=== PATIENT | female | born 2000 | race American Indian/Alaskan Native ===

== ENCOUNTER 2019-06-14 23:46 | Emergency (ER) | payer OTHER ==
[2019-06-15] MEDS ORDERED: NS 0.9% 1000 ML** 1,000 ML IV ONE (01:04)
[2019-06-15] MEDS ORDERED: Ibuprofen TAB* 400 MG PO ONE (01:04)
[2019-06-15] MEDS ORDERED: Acetaminophen TAB* 325 MG PO ONE (01:05)
[2019-06-15 01:51] LABS: ABS Lymphocytes 1.6 10^3/ul (1.0-4.8); ABS Neutrophils 6.8 10^3/ul (1.5-7.7); Eosinophil % 0.1 %; Hematocrit 42 % (35-47); Lymphocyte % 17.4 %; Mean Corpuscular HGB Conc 33 g/dL (31-36); Mean Corpuscular Hemoglobin 29 pg (27-31); Mean Corpuscular Volume 88 fL (80-97); Nucleated Red Blood Cells % 0.1; Platelet Count 225 10^3/uL (150-450); Red Blood Count 4.76 10^6 /uL (3.70-4.87); Red Cell Distribution Width 14 % (10-15); White Blood Count 9.4 10^3/uL (3.5-10.8)
[2019-06-15 02:08] LABS: Albumin 3.9 g/dL (3.2-5.2); Albumin/Globulin Ratio 1.2 (1-3); Calcium 8.4 mg/dL (8.6-10.3); EGFR African American 68.1 (>60); EGFR Non-African American 56.2 (>60); Globulin 3.3 g/dL (2-4); Total Bilirubin 0.5 mg/dL (0.2-1.0); Total Protein 7.2 g/dL (6.4-8.9)
[2019-06-15 02:30] LABS: Urine Appearance Clear; Urine Bacteria Absent (Absent); Urine Bilirubin Negative (Negative); Urine Blood 2+ (Negative); Urine Color Yellow; Urine Glucose Negative (Negative); Urine Ketones 1+ (Negative); Urine Nitrite Negative (Negative); Urine Protein Negative (Negative); Urine Red Blood Cell 1+(3-5/hpf) (Absent); Urine Squamous Epithelial Cell Present (Absent); Urine Urobilinogen Negative (Negative); Urine White Blood Cell 2+(11-20/hpf) (Absent)
[2019-06-15] MEDS ORDERED: Amoxicillin/Clavulanate TAB* 500 MG PO ONE (02:47)
--- NOTE | 2019-06-15 02:48 | ED ---
HPI Febrile Illness - HPI Summary HPI Summary: 18-year-old female presents with fever for the past couple days. She's been having body aches and headaches. She denies any neck stiffness. No cough. She admits to sore throat. Admits to sinus congestion. Also been having dysuria. Was diagnosed with UTI a week ago and started on which believes was Levaquin. She states that it seemed to get better but now has gotten worse. Denies any flank pain. No hematuria. Has no medical conditions. - History of Current Complaint Chief Complaint: EDFever Time Seen by Provider: 06/15/19 01:00 Pain Intensity: 3 - Allergy/Home Medications Allergies/Adverse Reactions: Allergies Allergy/AdvReac Type Severity Reaction Status Date / Time No Known Allergies Allergy Verified 06/14/19 23:57 PMH/Surg Hx/FS Hx/Imm Hx Endocrine/Hematology History: Denies: Hx Anticoagulant Therapy Respiratory History: Denies: Hx Asthma Infectious Disease History: No Infectious Disease History: Denies: Traveled Outside the [place] in Last 30 Days - Family History Known Family History: Positive: Non-Contributory - Social History Alcohol Use: None Substance Use Type: Reports: None Smoking Status (MU): Never Smoked Tobacco Review of Systems Positive: Fever, Chills Positive: Sore Throat Negative: Chest Pain Negative: Shortness Of Breath, Cough Negative: Abdominal Pain Positive: dysuria. Negative: flank pain Positive: Headache All Other Systems Reviewed And Are Negative: Yes Physical Exam Triage Information Reviewed: Yes Vital Signs On Initial Exam: Initial Vitals Temp Pulse Resp BP Pulse Ox 101.1 F 112 15 132/82 99 06/14/19 23:56 06/14/19 23:56 06/14/19 23:56 06/14/19 23:56 06/14/19 23:56 Vital Signs Reviewed: Yes Appearance: Positive: Well-Appearing Skin: Positive: Warm, Dry Head/Face: Positive: Normal Head/Face Inspection Eyes: Positive: Normal, EOMI, RHINA, Conjunctiva Clear ENT: Positive: Pharyngeal erythema, TMs normal Neck: Positive: Supple, Nontender, No Lymphadenopathy. Negative: Nuchal Rigidity Respiratory/Lung Sounds: Positive: Clear to Auscultation, Breath Sounds Present Cardiovascular: Positive: Normal, RRR Abdomen Description: Positive: Nontender, Soft. Negative: CVA Tenderness (R), CVA Tenderness (L) Bowel Sounds: Positive: Present Musculoskeletal: Positive: Normal Neurological: Positive: Normal Psychiatric: Positive: Normal Diagnostics - Vital Signs Vital Signs Temp Pulse Resp BP Pulse Ox 06/14/19 23:56 101.1 F 112 15 132/82 99 - Laboratory Lab Results: Lab Results 06/15/19 06/15/19 06/15/19 Range/Units 01:43 01:44 02:09 WBC 9.4 (3.5-10.8) 10^3/uL RBC 4.76 (3.70-4.87) 10^6 /uL Hgb 14.0 (12.0-16.0) g/dL Hct 42 (35-47) % MCV 88 (80-97) fL MCH 29 (27-31) pg MCHC 33 (31-36) g/dL RDW 14 (10-15) % Plt Count 225 (150-450) 10^3/uL MPV 8.0 (7.4-10.4) fL Neut % (Auto) 71.8 % Lymph % (Auto) 17.4 % Mitchell % (Auto) 10.3 % Eos % (Auto) 0.1 % Baso % (Auto) 0.4 % Absolute Neuts (auto) 6.8 (1.5-7.7) 10^3/ul Absolute Lymphs (auto) 1.6 (1.0-4.8) 10^3/ul Absolute Monos (auto) 1.0 H (0-0.8) 10^3/ul Absolute Eos (auto) 0.0 (0-0.6) 10^3/ul Absolute Basos (auto) 0.0 (0-0.2) 10^3/ul Absolute Nucleated RBC 0.0 10^3/ul Nucleated RBC % 0.1 Sodium 133 L (135-145) mmol/L Potassium 4.0 (3.5-5.0) mmol/L Chloride 102 (101-111) mmol/L Carbon Dioxide 23 (22-32) mmol/L Anion Gap 8 (2-11) mmol/L BUN 16 (6-24) mg/dL Creatinine 1.23 H (0.51-0.95) mg/dL Est GFR ( Amer) 68.1 (>60) Est GFR (Non-Af Amer) 56.2 (>60) BUN/Creatinine Ratio 13.0 (8-20) Glucose 102 H (70-100) mg/dL Calcium 8.4 L (8.6-10.3) mg/dL Total Bilirubin 0.50 (0.2-1.0) mg/dL AST 18 (13-39) U/L ALT 9 (7-52) U/L Alkaline Phosphatase 57 (34-104) U/L Total Protein 7.2 (6.4-8.9) g/dL Albumin 3.9 (3.2-5.2) g/dL Globulin 3.3 (2-4) g/dL Albumin/Globulin Ratio 1.2 (1-3) Urine Color Yellow Urine Appearance Clear Urine pH 7.0 (5-9) Ur Specific Stacy 1.020 (1.010-1.030) Urine Protein Negative (Negative) Urine Ketones 1+ A (Negative) Urine Blood 2+ A (Negative) Urine Nitrate Negative (Negative) Urine Bilirubin Negative (Negative) Urine Urobilinogen Negative (Negative) Ur Leukocyte Esterase Trace A (Negative) Urine WBC (Auto) 2+(11-20/hpf) A (Absent) Urine RBC (Auto) 1+(3-5/hpf) A (Absent) Ur Squamous Epith Cells Present A (Absent) Urine Bacteria Absent (Absent) Urine Glucose Negative (Negative) Monoscreen Negative (Negative) Result Diagrams: 06/15/19 01:43 06/15/19 01:44 Lab Statement: Any lab studies that have been ordered have been reviewed, and results considered in the medical decision making process. Course/Dx - Course Course Of Treatment: 18-year-old female presents with fever for the past couple days. She's been having body aches and headaches. She denies any neck stiffness. No cough. She admits to sore throat. Admits to sinus congestion. Also been having dysuria. Was diagnosed with UTI a week ago and started on which believes was Levaquin. She states that it seemed to get better but now has gotten worse. Denies any flank pain. No hematuria. Has no medical conditions. On exam lungs CTA. Abdomen soft nontender. Pharynx erythematous. Nontender flanks. wbc normal. urine shows a UTI. Gave fluids and tyenlol and fever came down. Strep and mono are negative. We'll treat UTI with Augmentin on a longer course due to the fever. Patient understands and agrees with plan. - Febrile Illness Differential Diagnoses: Pyelonephritis, Viremia, Other: - strept - Diagnoses Provider Diagnoses: Fever, UTI (urinary tract infection) Discharge ED - Sign-Out/Discharge Documenting (check all that apply): Patient Departure Patient Received Moderate/Deep Sedation with Procedure: No - Discharge Plan Condition: Good Disposition: HOME Prescriptions: Amoxicillin/Clavulanate TAB* [Augmentin TAB 500 mg*] 500 mg PO BID #13 tab Patient Education Materials: Urinary Tract Infection in Women (ED) Referrals: No Primary Care Phys,NOPCP [Primary Care Provider] - Additional Instructions: take augmentin twice a day for 7 days Drink plenty of fluids Return to ED if develop any new or worsening symptoms - Billing Disposition and Condition Condition: GOOD Disposition: Home
[2019-06-15 03:11] LABS: Rapid Strep Molecular Negative (Negative)
[2019-06-15 03:35] VITALS: BP 127/76
--- NOTE | 2019-06-17 05:46 | PN ---
Progress Note - Progress Note Date of Service: 06/15/19 Note: Urine culture preliminary grew Proteus mirabilis Pt placed on augmentin will await sensitivities
--- NOTE | 2019-06-19 08:21 | PN ---
Progress Note - Progress Note Date of Service: 06/15/19 Note: Urine culture final grew Proteus Mirabilis This is fairly low: A count of 10-25,000 Patient was placed on Augmentin which is sensitive to organism Nothing further at this time
== END 2019-06-15 02:50 | disposition home or self-care (01) ==
LOC: ED 23:46
DX: N39.0 Urinary tract infection, site not specified (principal); B96.4 Proteus (mirabilis) (morganii) as the cause of diseases classified elsewhere; R50.9 Fever, unspecified; J02.9 Acute pharyngitis, unspecified; R09.81 Nasal congestion; R51 Headache
CPT/HCPCS: 36415; 80053; 81003; 81015; 85025; 86308; 86618; 87077; 87086; 87184; 87186; 87651; 99283; A9270-GY